=== PATIENT | male | born 1970 | race Caucasian/White ===

== ENCOUNTER → 2017-05-28 | Outpatient (CLI) | payer BC ==
--- NOTE | 2017-05-28 17:06 | CONS ---
CONSULTATION REASON FOR CONSULTATION: Sleep apnea. 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 The patient is going to bed around midnight and wakes up at 5 a.m. in the morning. He has 2 jobs. 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 He starts work at 6 a.m. and he gets home at 10 p.m. 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 He gets up at 5:00 in the morning. He is a morning person; during the day he feels well. However, as the day goes by he feels excessively fatigued. He may have some snoring, although he is not sure. He denies having any choking or gasping sensation at nighttime. 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 He does not fall asleep while driving. His weight has been stable. No other medical problems other comorbidities. No issues with hypertension, hyperlipidemia, diabetes or coronary artery disease. He has a positive family history for PURNIMA. PAST MEDICAL HISTORY: Negative. PAST SURGICAL HISTORY: Knee arthroscopy. DRUG ALLERGIES: NOT KNOWN. OUTPATIENT MEDICATIONS: None. 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 No history of alcoholism. No history of IV drugs. FAMILY HISTORY: He has a brother with obstructive sleep apnea. REVIEW OF SYSTEMS: Twelve-point review of systems was done. It is positive for chronic fatigue and tiredness. No witnessed apneas. No insomnia. No nocturia. No grinding of the teeth. No restlessness in the lower extremities. No neuropathy. No sleepwalking or sleeptalking. No heartburn or abdominal pain. No chest pain or palpitations. No shortness of breath or cough. No wheeze at nighttime. No anxiety. No claustrophobia. No depression. No sleep paralysis. No hallucinations. No cataplexy. PHYSICAL EXAMINATION: BP is 131/89, pulse 78, respirations 14, temperature 98.2, saturation 99% on room air. Weight is 206. Height is 6 feet 1 inch and neck size is 16 inches. [place] score is 4. BMI is 27.1. GENERAL APPEARANCE: Calm, comfortable. Head is atraumatic, normocephalic. NECK: Supple. There is no JVD. No goiter or neck masses. Mallampati class 1. LUNGS: Clear to auscultation. Heart sounds are regular rate and rhythm. Normal S1, S2. No S3, S4. No murmurs. ABDOMEN: Soft, nontender. No organomegaly. EXTREMITIES: No edema. No cyanosis or clubbing. Neurologically he is alert and oriented x3. There is no focal neurological deficit. PSYCHIATRIC: Negative for anxiety or depression. Skin is negative for any wounds or ulcers. IMPRESSION: 1. Insufficient sleep syndrome. 2. Questionable obstructive sleep apnea. 3. Excessive fatigue with limited sleepiness. [place] Score is 4. PLAN: 1. Will need to extend his sleep hours to an average of 7 to 8 hours per night. 2. Will need to implement relaxation techniques and implement good sleep hygiene measures. meditation may also help to disengage himself from work-related factors that could potentially affect his sleep quality and ability to maintain sleep. 3. Home study to rule out obstructive sleep apnea. 4. Will continue to follow. MMODL / IJN: [id number] /
== END | disposition home or self-care (01) ==
LOC: SLEEP 13:02
PROVIDERS: ATTEND Internal Medicine Critical Care Medicine
DX: F51.12 Insufficient sleep syndrome (principal); R53.83 Other fatigue
CPT/HCPCS: 99211

== ENCOUNTER → 2024-05-11 | Outpatient (CLI) | payer BC ==
[2024-05-11 15:01] VITALS: BP 150/90; PULSE 66; RESP 16; TEMP 98.1
--- NOTE | 2024-05-11 18:52 | P.SLEEP ---
History of Present Illness H&P Date: 05/11/24 This is a 53-year-old male patient is coming in for reevaluation regarding his obstructive sleep apnea. 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 At that time, he opted for conservative treatments and no CPAP therapy was offered. Noted, back in 2019, the patient used to weigh 206 pounds with a body mass index of 27.2. His sleep study at that time showed no significant nocturnal oxygen desaturations. The patient continues to have insufficient sleep syndrome. He works 2 jobs. He works at [employer] and his work starts at 6:30 AM in the morning. 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 As such, during weekdays, the patient goes to bed at around 12:30 AM and he has to get out of bed at 5 AM in the morning averaging around 4 to 4-1/2 hours of sleep. On weekends, the patient compensates adequately and he states between 10 PM and 7:30 AM in the morning. He continues to have some snoring. He feels tired and sleepy during the day. However, this is not affected her functionality at work. He admits to wake up tired. However, he regains energy during the day and he has adequate attention span and memory and concentration especially during working hours. He drinks around 8 cups of coffee during the day and he has developed some occasional palpitation. No cardiac arrhythmias. No reported atrial fibrillation. No significant weight gain over the years. The patient had a reevaluation by another home sleep study that was ordered through his primary care physician on 03/04/2024. I reviewed the study and the patient's AHI was recorded to be at 14.9. No significant desaturations as this patient spent less than 1% of the sleep time below pulse ox of 89%. For that reason, the patient was referred to me back to discuss treatment options. For now, the patient is sleeping on his back. No sleep paralysis. No hallucinations. No cataplexy. No cardiovascular complications. No stroke. No congestion or heart failure. Does not take any medications for now. Review of Systems Constitutional: Reports daytime sleepiness, Reports fatigue Eyes: denies as per HPI, denies blurred vision, denies bulging eye, denies decreased vision, denies diplopia, denies discharge, denies dry eye, denies irritation, denies itching, denies pain, denies photophobia, denies loss of peripheral vision, denies loss of vision, denies tunnel vision/blind spots Ears: deny: decreased hearing, ear discharge, earache, tinnitus Ears, nose, mouth and throat: Reports as per HPI Breasts: absent: as per HPI, gynecomastia Cardiovascular: Reports as per HPI Respiratory: Reports sleep apnea, Reports snoring Gastrointestinal: Reports as per HPI Genitourinary: Reports as per HPI Musculoskeletal: Reports as per HPI Musculoskeletal: absent: ankle pain, ankle stiffness, ankle swelling, as per HPI, elbow pain, elbow stiffness, elbow swelling, foot pain, foot stiffness, foot swelling, hand pain, hand stiffness, hand swelling, hip pain, hip stiffness, hip swelling, knee pain, knee stiffness, knee swelling, shoulder pain, shoulder stiffness, shoulder swelling, wrist pain, wrist stiffness, wrist swelling Integumentary: Reports as per HPI Neurological: Reports as per HPI Psychiatric: Reports hypersomnia, Reports sleep disturbances Endocrine: Reports as per HPI Hematologic/Lymphatic: Reports as per HPI Allergic/Immunologic: Reports as per HPI Past Medical History Past Medical History: No Reported History History of Any Multi-Drug Resistant Organisms: None Reported Past Surgical History: Orthopedic Surgery Additional Past Surgical History / Comment(s): Rt Knee-1996 Past Anesthesia/Blood Transfusion Reactions: No Reported Reaction Past Psychological History: No Psychological Hx Reported Smoking Status: Never smoker Past Alcohol Use History: Daily Additional Past Alcohol Use History / Comment(s): 12 ounce Beer every night Past Drug Use History: None Reported - Past Family History Father Family Medical History: Coronary Artery Disease (CAD), Hypertension Mother Family Medical History: Cancer Medications and Allergies Allergies Allergy/AdvReac Type Severity Reaction Status Date / Time No Known Allergies Allergy Unverified 12/19/16 09:33 Physical Exam Vitals: Vital Signs Temp Pulse Resp BP Pulse Ox 05/11/24 14:59 98.1 F 66 16 150/90 98 Intake and Output 05/11/24 05/11/24 05/11/24 06:59 14:59 22:59 Other: Weight 94.801 kg The patient appeared well nourished and normally developed. Vital signs as documented. Head exam is unremarkable. No scleral icterus or corneal arcus noted. Neck is without jugular venous distension, thyromegaly, or carotid bruits. Carotid upstrokes are brisk bilaterally. Lungs are clear to auscultation and percussion. Cardiac exam reveals the PMI to be normally sized and situated. Rhythm is regular. First and second heart sounds normal. No murmurs, rubs or gallops. Abdominal exam reveals normal bowel sounds, no masses, no organomegaly and no aortic enlargement. Extremities are nonedematous and both femoral and pedal pulses are normal. Examination of the skin revealed no evidence of significant rashes, suspicious appearing nevi or other concerning lesions. Neurologically, the patient is awake and alert and the patient does not have any focal neurological deficit. Cranial nerves are essentially intact. Assessment and Plan Plan: Obstructive sleep apnea which is mild in severity. Initial sleep study back in 2017 revealed mild obstructive sleep apnea with an AHI of 7. Reevaluation done on 03/04/2024 showed some progression and the patient is AHI was recorded to be at 14.9. Nevertheless, his disease severity remains essentially mild. He is having symptoms of fatigue and tiredness and some degree of sleepiness and his [place] score is currently at 7. Clearly, the patient has insufficient sleep syndrome. Due to his extended number of hours at work, the patient is averaging around 4 to 4-1/2 hours of sleep during weekdays as he continues to work 2 jobs. On weekends, the patient compensates that he sleeps around 8 to 9 hours. I think, his symptoms are more linked to insufficiency and syndrome rather than obstructive sleep apnea. I do acknowledge that his PURNIMA severity has gotten worse, nevertheless, this still remains in the mild range and his AHI remains less than 15. No significant nocturnal oxygen desaturations. Insufficient sleep syndrome Plan Very important for this patient to extend his sleep hours. This may be achieved by sleeping for longer number of hours during weekdays and he is working on doing some modification in his job to allow him to sleep longer number of hours. He was made aware of the ill effects of insufficient sleep syndrome on a long- term basis including effects on cardiovascular health, mental health, and overall quality of life. He clearly understands that and he wants to work on it over the next year. Meanwhile, in regards to his obstructive sleep apnea, his disease severity remains mild and the patient did not show a particular interest or CPAP therapy. I offered him alternative options such as oral appliance with mandibular advancement device that should improve the severity of his sleep apnea. He is going to explore that option. At the same time, he is interested in obtaining a reevaluation in a years time after extending his number of hours of sleep and losing some weight. His sleep hygiene measures in general adequate. The patient compensates by oversleeping over the weekends. No other major comorbidities The patient was seen back in a years time for reevaluation. He needs to consider an oral appliance for treatment of mild obstructive sleep apnea and at same time work on extending his number of hours of sleep. Sleep Note - Sleep Data ESS Total: 7 - Sleep Note Sleep Note: Temperature: 98.1 F Pulse Rate: 66 Respiratory Rate: 16 Blood Pressure: 150/90 SpO2: 98 Height: 6 ft 1 in Weight: 94.801 kg BMI: Neck Circumference: 15.2
== END ==
LOC: 3 N SLEEP 14:10
PROVIDERS: ATTEND Internal Medicine Critical Care Medicine
DX: G47.33 Obstructive sleep apnea (adult) (pediatric) (principal); F51.12 Insufficient sleep syndrome
CPT/HCPCS: 99202